=== PATIENT | female | born 1945 | race Caucasian/White ===

== ENCOUNTER 2024-05-07 08:07 | Emergency (ER) | payer OTHER ==
[~2024-05-07] VITALS: Ht 157.5 cm; Wt 61.3 kg
[2024-05-07] MEDS: LIDOCAINE W/ EPINEPHRINE 1% 20ML VIAL ID ONE (09:25)
[2024-05-07] MEDS: NEOMYCIN-BACITRACIN-POLYM UNITDOSE PKG TOP OINT TOP ONE (09:25)
--- NOTE | 2024-05-07 10:26 | ED.PDOC ---
HPI Comments 78 year old female with a MHx of dementia presents for a cat bite. Patient was brought in by EMS. Sustained multiple lacerations to the right upper extremity. Denies any pain at this time. Denies any numbness tingling to the affected extremity. Last tetanus shot unknown Denies abnormal animal behavior Denies history of immunocompromise (HIV hep B hep C) Denies fever chills night sweats Chief Complaint: Laceration Time Seen by MD: 08:55 Primary Care Provider: UNKNOWN Reviewed Notes: Nurses Notes, Medications, Allergies Allergies: Coded Allergies: NO KNOWN ALLERGIES (Unverified , 05/07/24) Information Source: Patient Mode of Arrival: EMS Complexity: Complex Laceration Length (cm): 7 Family History Family History: Reviewed,noncontributory to illness Social History Smoker: Non-Smoker All Other Systems: Reviewed and Negative (Per HPI) Physical Exam General Appearance: No Apparent Distress, Normal HEENT: Normal ENT Inspection, Pharynx Normal, TMs Normal Neck: Full Range of Motion, Non-Tender, Normal, Normal Inspection Respiratory: Chest Non-Tender, Lungs Clear, No Accessory Muscle Use, No Respiratory Distress, Normal Breath Sounds Cardiovascular: No Edema, No JVD, No Murmur, No Gallop, Normal Peripheral Pulses, Regular Rate/Rhythm Breast Exam: Deferred Gastrointestinal: No Organomegaly, Non Tender, No Pulsatile Mass, Normal Bowel Sounds, Soft Genitalia: Deferred Pelvic: Deferred Rectal: Deferred Extremities: No calf tenderness, Normal capillary refill, Normal inspection, Normal range of motion, Non-tender, No pedal edema Musculoskeletal : Location: Right Extremity Location: Forearm (Laceration. No FB appreciapted. Distal neurosensation intact. Radial pulses stong. Cap refill < 3 sec), Other (Right bicept: Laceration. No FB appreciapted. Distal neurosensation intact. 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 Was a procedure done?: No Images 1 - 3x3 cm laceration. 2 - 7x7 cm laceration. deep tissue injury. no signs of tendon injury. hemostasis 3 - 8x7 cm deep laceration. no fb. jagged edges Differential diagnosis Generic Laceration: Retained Foriegn Body, Abrasion/Contusion, Laceration, Avulsion, Amputation X-Ray, Labs, Meds, VS Vital Signs Date Time Temp Pulse Resp B/P (MAP) Pulse Ox O2 Delivery O2 Flow Rate FiO2 05/07/24 22:15 97.5 88 16 131/85 (100) 94 97.5 05/07/24 12:01 94 20 129/61 (83) 96 05/07/24 12:01 74 18 97 Room Air* 0 21 05/07/24 08:18 98 16 05/07/24 08:18 98.0 98 16 131/76 (94) 98 98.0 05/07/24 08:15 98.0 98 16 131/76 (94) 98 Lab Test 05/07/24 14:35 Range/Units White Blood Count 11.1 H 4.4-10.8 10^3/uL Red Blood Count 4.03 4.0-5.20 10^6/uL Hemoglobin 11.5 L 12.2-16.2 g/dL Hematocrit 35.6 L 36.0-46.0 % Mean Corpuscular Volume 88.3 80.0-100.0 fL Mean Corpuscular Hemoglobin 28.5 28.0-32.0 pg Mean Corpuscular Hemoglobin Concent 32.3 32.0-36.0 g/dL Red Cell Distribution Width 14.9 H 11.8-14.3 % Platelet Count 257 140-450 10^3/uL Mean Platelet Volume 8.6 6.9-10.8 fL Neutrophils (%) (Auto) 77.0 37.0-80.0 % Lymphocytes (%) (Auto) 14.9 10.0-50.0 % Monocytes (%) (Auto) 7.6 0.0-12.0 % Eosinophils (%) (Auto) 0.3 0.0-7.0 % Basophils (%) (Auto) 0.2 0.0-2.0 % Neutrophils # (Auto) 8.5 1.6-8.6 10 ^3/uL Lymphocytes # (Auto) 1.7 0.4-5.4 10 ^3/uL Monocytes # (Auto) 0.8 0-1.3 10 ^3/uL Eosinophils # (Auto) 0 0-0.8 10 ^3/uL Basophils # (Auto) 0 0-0.2 10 ^3/uL Nucleated Red Blood Cells 0.1 % Sodium Level 140 136-145 mmol/L Potassium Level 3.8 3.5-5.1 mmol/L Chloride Level 107 98-107 mmol/L Carbon Dioxide Level 24 20-31 mmol/L Anion Gap 9 5-15 Blood Urea Nitrogen 15 9-23 mg/dL Creatinine 0.72 0.550-1.02 mg/dL Glomerular Filtration Rate Calc 85 >90 mL/min BUN/Creatinine Ratio 20.8 H 10.0-20.0 Serum Glucose 96 74-106 mg/dL Calcium Level 9.1 8.7-10.4 mg/dL Total Bilirubin 0.6 0.2-1.0 mg/dL Aspartate Amino Transferase (AST) 22 13-40 U/L Alanine Aminotransferase (ALT) 18 7-40 U/L Alkaline Phosphatase 89 46-116 U/L Total Protein 6.5 5.7-8.2 g/dL Albumin 4.3 3.2-4.8 g/dL X-Ray, Labs, Meds, VS Comment Based on the history, exam, and test performed, there does not seem to be a retained foreign body, nerve injury, vascular injury, tendon injury, bone injury or foreign body. Complex wounds to the RUE Tdap updated Wound cleaned in the ER with jet irrigation and Betadine Antibiotics ordered. The patient's workup reveals that the patient needs further evaluation and/or treatment for the above medical conditions. Patient verbalized understanding Spoke with Yanes at 13:30. Case number [id number]. Time of 1ST Reevaluation: 10:24 Reevaluation 1ST: Unchanged Time of 2ND Reevaluation: 12:00 Reevaluation 2ND: Unchanged Time of 3RD Reevaluation: 15:00 Reevaluation 3RD: Unchanged Patient Education/Counseling: Diagnosis, Treatment Family Education/Counseling: Diagnosis, Treatment Departure 1 Departure Time of Disposition: 10:24 Impression: Primary Impression: Animal bite Disposition: ADMITTED INPATIENT Condition: Fair Critical Care Note Critical Care Time?: No Stability Stability form required: No Heart Score Heart Score: Heart Score Response (Comments) Value History N/A 0 EKG N/A 0 Age N/A 0 Risk Factors N/A 0 Troponin N/A 0 Total 0 JACOB IRBY SHANK PAPERER May 07, 2024 10:26
[2024-05-07] MEDS: TETANUS-DIPTH-ACEL PERTUSSIS 0.5ML SYR Tdap IM ONE (10:57)
[2024-05-07] MEDS: AMPICILLIN & SULBACTAM SODIUM 3 GM in SODIUM CHL 0.9% 100 ML IV STA (11:33)
[2024-05-07] MEDS: SODIUM CHLORIDE 0.9% 1,000 ML IV ONE (11:34)
[2024-05-07 12:01] VITALS: PULSE 74; RESP 18; O2SAT 97
[2024-05-07 15:00] LABS: Basophils # (auto) 0 10 ^3/uL (0-0.2); Basophils % (auto) 0.2 % (0.0-2.0); Eosinophils # (auto) 0 10 ^3/uL (0-0.8); Eosinophils % (auto) 0.3 % (0.0-7.0); Hematocrit 35.6 % (36.0-46.0); Hemoglobin 11.5 g/dL (12.2-16.2); Lymphocytes # (auto) 1.7 10 ^3/uL (0.4-5.4); Lymphocytes % (auto) 14.9 % (10.0-50.0); Mean Corpuscular Hemoglobin 28.5 pg (28.0-32.0); Mean Corpuscular Hgb Conc. 32.3 g/dL (32.0-36.0); Mean Corpuscular Volume 88.3 fL (80.0-100.0); Monocytes # (auto) 0.8 10 ^3/uL (0-1.3); Monocytes % (auto) 7.6 % (0.0-12.0); Neutrophils # (auto) 8.5 10 ^3/uL (1.6-8.6); Nucleated Red Blood Cells % 0.1 %; Platelet Count (auto) 257 10^3/uL (140-450); Red Blood Cells 4.03 10^6/uL (4.0-5.20); Red Cell Distribution Width 14.9 % (11.8-14.3); White Blood Cell 11.1 10^3/uL (4.4-10.8)
[2024-05-07 15:26] LABS: Alanine Aminotransferase 18 U/L (7-40); Albumin 4.3 g/dL (3.2-4.8); Alkaline Phosphatase 89 U/L (46-116); Anion Gap 9 (5-15); Aspartate Aminotransferase 22 U/L (13-40); BUN/Creatinine Ratio 20.8 (10.0-20.0); Bilirubin, Total 0.6 mg/dL (0.2-1.0); Blood Urea Nitrogen 15 mg/dL (9-23); Calcium 9.1 mg/dL (8.7-10.4); Carbon Dioxide 24 mmol/L (20-31); Glucose 96 mg/dL (74-106); Potassium 3.8 mmol/L (3.5-5.1); Sodium 140 mmol/L (136-145); Total Protein 6.5 g/dL (5.7-8.2)
[2024-05-07 15:38] LABS: Chloride 107 mmol/L (98-107)
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
[2024-05-07 22:15] VITALS: BP 131/85; PULSE 88; RESP 16; TEMP 97.5; O2SAT 94
== END 2024-05-07 22:14 | disposition short-term general hospital (02) ==
LOC: EDBD 08:07 → ER 08:07
DX: S61.419A Laceration without foreign body of unspecified hand, initial encounter (principal); F03.90 Unspecified dementia, unspecified severity, without behavioral disturbance, psychotic disturbance, mood disturbance, and anxiety; W55.01XA Bitten by cat, initial encounter; Y93.89 Activity, other specified; Y92.89 Other specified places as the place of occurrence of the external cause; Y99.8 Other external cause status
CPT/HCPCS: 36415; 73060; 73090; 80053; 85025; 90471; 90715; 96365